=== PATIENT | male | born 1995 | race Two or more races ===

== ENCOUNTER 2025-01-16 12:47 | Emergency (ER) | payer MEDICARE, MEDICAID ==
[~2025-01-16] VITALS: Ht 160 cm; Wt 57.0 kg
[2025-01-16 13:00] VITALS: BP 91/82; PULSE 72; RESP 18; TEMP 98.6; O2SAT 99
--- NOTE | 2025-01-16 14:24 | DVH ---
CLINICAL INDICATION: Pain TECHNIQUE: XY L TIB FIB XRAY Comparison: None FINDINGS/IMPRESSION: : There is no evidence of acute fracture or dislocation. Soft tissues are unremarkable.
--- NOTE | 2025-01-16 14:34 | ED.PDOC ---
Musculoskeletal HPI Comments 29-year-old male brought in by Narayan (caregiver) for concerns of a skin rash located to the left lower extremity. The patient resides in a retirement called [facility]. History of autism, fragile X syndrome,erythrocytosis Chief Complaint: Lower Extremity Time Seen by MD: 13:11 Primary Care Provider: JOSIE Barnett Notes: Nurses Notes, Medications, Allergies Allergies: Coded Allergies: UNOBTAINABLE (Unverified , 01/16/25) Information Source: Relative (Mother) Mode of Arrival: Ambulatory Past Medical History Past Medical History (Other): History of autism, fragile X syndrome,erythrocytosis Surgical History: Denies all surgeries Social History Lives In: Home All Other Systems: Reviewed and Negative (per hpi) Physical Exam General Appearance: No Apparent Distress, Normal HEENT: Normal ENT Inspection, Pharynx Normal, TMs Normal Neck: Full Range of Motion, Non-Tender, Normal, Normal Inspection Respiratory: Chest Non-Tender, Lungs Clear, No Accessory Muscle Use, No Respiratory Distress, Normal Breath Sounds Cardiovascular: No Murmur, No Gallop, Regular Rate/Rhythm Breast Exam: Deferred Gastrointestinal: No Organomegaly, Non Tender, No Pulsatile Mass, Normal Bowel Sounds, Soft Genitalia: Deferred Pelvic: Deferred Rectal: Deferred Extremities: No calf tenderness, Normal capillary refill, Normal inspection, Normal range of motion, Non-tender, No pedal edema Musculoskeletal : Apperance: Normal Neurologic: Alert, No Motor Deficits, Normal Affect, Normal Mood, No Sensory Deficits Cerebellar Function: Normal Reflexes: Normal Skin: Dry, Normal Color, Warm Lymphatic: No Adenopathy Was a procedure done? Was a procedure done?: No Images 1 - 2x4 cm contussion. Wounds. No step-offs on palpation. No swelling Differential Diagnosis EXT Differential Diagnosis: Other X-Ray, Labs, Meds, VS Vital Signs Date Time Temp Pulse Resp B/P (MAP) Pulse Ox O2 Delivery O2 Flow Rate FiO2 01/16/25 13:00 98.6 72 18 91/82 (85) 99 98.6 01/16/25 13:00 98.6 72 18 91/82 (85) 99 98.6 01/16/25 13:00 72 18 99 Room Air X-Ray, Labs, Meds, VS Comment After ROS physical examination no red flags. No suspicion for abuse. Recommended cold compresses. Patient is stable for discharge at this time. External notes reviewed. Test results and diagnostic imaging interpreted. All diagnostic findings, discharge care, education and instructions provided Follow-up with PCP in 2 to 3 days Patient verbalized understanding and agreed to treatment plan Vital signs stable, afebrile, no acute distress noted Patient ambulatory with strong steady gait Advised to return precautions for any new or worsening symptoms, return to ER immediately for re-evaluation Patient is aware that the purpose of this visit was for an acute medical emergency requiring emergent stabilization. Chronic conditions, including malignancies have not been ruled out. Patient is instructed to follow up with PCP as directed and discharge instructions for continued care and workup. If unable to arrange follow-up, patient is to return to the emergency department for reassessment. Patient (parent or legal guardian if applicable) was given verbal and written discharge instructions and acknowledges understanding. Time of 1ST Reevaluation: 17:23 Reevaluation 1ST: Improved Patient Education/Counseling: Diagnosis, Treatment Family Education/Counseling: Diagnosis, Treatment Departure 1 Departure Time of Disposition: 14:33 Impression: Primary Impression: Contusion of leg, left Qualified Codes: S80.12XA - Contusion of left lower leg, initial encounter Disposition: 01 HOME / SELF CARE / HOMELESS Condition: Stable Discharged With: [employer] Critical Care Note Critical Care Time?: No Stability Stability form required: No Heart Score Heart Score: Heart Score Response (Comments) Value History N/A 0 EKG N/A 0 Age N/A 0 Risk Factors N/A 0 Troponin N/A 0 Total 0 KIKA ANGEL NP January 16, 2025 14:34
== END 2025-01-16 14:51 | disposition home or self-care (01) ==
LOC: ER 12:56
DX: S80.12XA Contusion of left lower leg, initial encounter (principal); F84.0 Autistic disorder; X58.XXXA Exposure to other specified factors, initial encounter; Y93.89 Activity, other specified; Y92.89 Other specified places as the place of occurrence of the external cause; Y99.8 Other external cause status
CPT/HCPCS: 73590